=== PATIENT | male | born 1945 | race Caucasian/White ===

== ENCOUNTER 2023-05-30 14:51 | Emergency (ER) | payer MEDICARE, OTHER ==
[~2023-05-30] VITALS: Ht 172.7 cm; Wt 79.8 kg
[2023-05-30 15:51] LABS: BASO % 0.3 % (0.0-1.0); EOS # 0.3 10*3/uL (0.0-0.4); EOS % 3.8 % (1.0-4.0); HEMATOCRIT 46.3 % (42.0-52.0); LYMPH # 2.1 10*3/uL (1.3-4.4); LYMPH % 32.4 % (27.0-41.0); MEAN CELL VOLUME 95.5 fl (80.0-94.0); MEAN CORPUSCULAR HGB CONC 33.5 g/dl (33.0-37.0); MEAN PLATELET VOLUME 9.8 fl (9.6-12.3); MONO # 0.7 10*3/uL (0.1-1.0); MONO % 10.4 % (3.0-9.0); NEUT # 3.5 10*3/uL (2.3-7.9); NEUT % 52.9 % (47.0-73.0); PLATELET COUNT AUTOMATED 232 10*3/uL (130-400); RED BLOOD COUNT 4.85 10*6/uL (4.50-5.90); RED CELL DISTRI WIDTH 12.5 % (0-14.5); WHITE BLOOD COUNT 6.5 10*3/uL (4.8-10.8)
[2023-05-30 15:56] LABS: BILIRUBIN Negative (Negative); BLOOD 2+ (Negative); CLARITY Clear (Clear); COLOR Yellow (Yellow); GLUCOSE Negative (Negative); KETONE Negative (Negative); LEUKO ESTERASE Negative (Negative); NITRITE Negative (Negative); PH 6.5 (4.5-8.0)
[2023-05-30 16:02] LABS: URINE AMPHETAMINES Negative (1000ng/ml); URINE BARBITURATES Negative (200ng/ml); URINE BENZODIAZEPINES Negative (200ng/ml); URINE CANNABINOIDS (THC) Negative (50ng/ml); URINE COCAINE Negative (300ng/ml); URINE METHADONE Negative (300ng/ml); URINE OPIATES Negative (300ng/ml); URINE PHENCYCLIDINE Negative (25ng/ml)
[2023-05-30 16:05] LABS: RBC 21-30 rbc/hpf (0-2)
[2023-05-30 16:05] LABS: ACT PARTIAL THROMBO TIME 28.6 SECONDS (20.0-32.1)
[2023-05-30 16:06] LABS: BACTERIA TRACE; MUCOUS 1+
[2023-05-30 16:16] LABS: ALKALINE PHOSPHATASE 56 U/L (46-116); BUN 10 mg/dl (9-23); CHLORIDE 109 mmol/L (98-107); ETHYL ALCOHOL < 3.0 mg/dl (<3); POTASSIUM 3.8 mmol/L (3.4-5.1); SGPT/ALT 23 U/L (5-49); TOTAL PROTEIN 6.2 gm/dL (6.0-8.0)
[2023-05-30] MEDS ORDERED: AMLODIPINE BES2.5 MG PO (16:33)
[2023-05-30] MEDS ORDERED: GOOD SENSE ACID20 MG PO (16:34)
[2023-05-30] MEDS ORDERED: [UNRECOGNIZED DRUG - OTHER] PO (16:34)
[2023-05-30] MEDS ORDERED: LEVOTHYROXINE50 MC1 PO (16:37)
[2023-05-30] MEDS ORDERED: LISINOPRIL40 MG PO (16:37)
[2023-05-30] MEDS ORDERED: MELOXICAM7.5 MG PO (16:40)
[2023-05-30] MEDS ORDERED: MELATONIN10 M4 PO (16:41)
== END 2023-05-30 20:45 | disposition short-term general hospital (02) ==
LOC: ED 14:51
PROVIDERS: Family Medicine
DX: I62.9 Nontraumatic intracranial hemorrhage, unspecified (principal); F03.90 Unspecified dementia, unspecified severity, without behavioral disturbance, psychotic disturbance, mood disturbance, and anxiety; Z87.442 Personal history of urinary calculi; I10 Essential (primary) hypertension; Z91.012 Allergy to eggs; Z79.899 Other long term (current) drug therapy

== ENCOUNTER 2023-06-11 19:38 | Emergency (ER) | payer MEDICARE, OTHER ==
[~2023-06-11] VITALS: Ht 167.6 cm; Wt 86.2 kg
[~2023-06-11 19:38] MED LIST: AMLODIPINE BES2.5 MG PO; B121000 MCG/1 IM; DIVALPROEX SOD250 MG PO; GOOD SENSE ACID20 MG PO; LEVOTHYROXINE50 MC1 PO; LISINOPRIL40 MG PO; MELATONIN10 M4 PO; MELOXICAM7.5 MG PO; NAMENDA-5 PO; RIVASTIGMINE1 EAC1 T; VITAMIN D3125 MC1 PO; [UNRECOGNIZED DRUG - OTHER] PO
[2023-06-11 20:06] LABS: BASO % 0.3 % (0.0-1.0); EOS # 0.2 10*3/uL (0.0-0.4); EOS % 3.3 % (1.0-4.0); HEMATOCRIT 47.1 % (42.0-52.0); LYMPH # 2.8 10*3/uL (1.3-4.4); LYMPH % 41.9 % (27.0-41.0); MEAN CELL VOLUME 100.2 fl (80.0-94.0); MEAN CORPUSCULAR HGB 31.5 pg (27.0-31.0); MEAN CORPUSCULAR HGB CONC 31.4 g/dl (33.0-37.0); MEAN PLATELET VOLUME 9.4 fl (9.6-12.3); MONO # 0.7 10*3/uL (0.1-1.0); MONO % 10.9 % (3.0-9.0); NEUT # 2.9 10*3/uL (2.3-7.9); NEUT % 43.5 % (47.0-73.0); PLATELET COUNT AUTOMATED 219 10*3/uL (130-400); RED CELL DISTRI WIDTH 12.6 % (0-14.5); WHITE BLOOD COUNT 6.7 10*3/uL (4.8-10.8)
[2023-06-11 20:27] LABS: ALKALINE PHOSPHATASE 56 U/L (46-116); BUN 13 mg/dl (9-23); CHLORIDE 107 mmol/L (98-107); POTASSIUM 4.3 mmol/L (3.4-5.1); SGPT/ALT 16 U/L (5-49); TOTAL PROTEIN 6.4 gm/dL (6.0-8.0)
[2023-06-11 20:32] LABS: ETHYL ALCOHOL < 3.0 mg/dl (<3)
== END 2023-06-11 22:23 ==
LOC: ED 19:38
PROVIDERS: Nurse Practitioner Family
DX: R45.6 Violent behavior (principal); Z00.8 Encounter for other general examination; Z79.899 Other long term (current) drug therapy; Z90.49 Acquired absence of other specified parts of digestive tract; Z98.890 Other specified postprocedural states